=== PATIENT | female | born 2000 | race Caucasian/White ===

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

== ENCOUNTER 2018-03-10 22:56 | Emergency (ER) | payer MEDICAID, OTHER ==
[2018-03-11 01:39] LABS: Hematocrit 38 % (35-47); Hemoglobin 12.9 g/dl (12.0-16.0); Mean Corpuscular HGB Conc 34 g/dl (31-36); Mean Corpuscular Hemoglobin 30 pg (27-31); Mean Corpuscular Volume 88 fL (80-97); Mean Platelet Volume 8.4 fL (7.4-10.4); Platelet Count 165 10^3/ul (150-450); Red Blood Count 4.35 10^6/ul (4.00-5.40); Red Cell Distribution Width 13 % (10.5-15); White Blood Count 10.9 10^3/ul (3.5-10.8)
[2018-03-11 01:46] LABS: Urine Appearance Cloudy; Urine Blood Negative (Negative); Urine Color Yellow; Urine Ketones Negative (Negative); Urine Protein Negative (Negative); Urine Red Blood Cell Absent (Absent); Urine Specific Gravity 1.006 (1.010-1.030); Urine Urobilinogen Negative (Negative); Urine White Blood Cell Trace(0-5/hpf) (Absent)
[2018-03-11 01:53] LABS: EGFR Non-African American 131.3 (>60)
--- NOTE | 2018-03-11 02:22 | ED ---
Abdominal Pain/Female - HPI Summary HPI Summary: Patient is an otherwise healthy 17-year-old female presenting to the ED with diffuse abdominal pain worse to the mid upper quadrant worse approximately 30 minutes after eating and better with aloe rest. She is also endorsing some constipation over the past few days with last bowel movement yesterday morning which was a hard stool. She's never had anything like this before. She denies any abdominal surgeries. She denies any fevers, sweats, chills. She is endorsing nausea intermittently without vomiting. Denies urinary symptoms, vaginal pain or discharge. Denies chance of and currently on OCP. Pain is worse with solid foods and was better this afternoon with a smoothie. On arrival, she is asymptomatic but also stating she has not eaten anything except the smoothie. Endorses early satiety. She describes the pain as a dull ache, intermittent and x 4 days. Denies back pain. She states she feels otherwise well and has been having her normal ADL's without compromise. - History of Current Complaint Chief Complaint: EDAbdPain Stated Complaint: ABD PAIN/NAUSEA Time Seen by Provider: 03/11/18 00:46 Hx Obtained From: Patient ?: No Onset/Duration: Gradual Onset Timing: Constant Severity Initially: Mild Severity Currently: Mild Pain Intensity: 0 Pain Scale Used: 0-10 Numeric Location: Diffuse, Other - worse to the mid upper quadrant Radiates: No Character: Dull Aggravating Factor(s): Food Alleviating Factor(s): NPO Associated Signs and Symptoms: Positive: Constipation, Decreased Appetite, Nausea. Negative: Diaphoresis, Fever, Back Pain, Blood in Stool, Urinary Symptoms, Vaginal Bleeding, Vaginal Discharge, Vomiting, Diarrhea - Risk Factors Ectopic Risk Factor: Negative Ovarian Torsion Risk Factor: Reproductive Age Allergies/Adverse Reactions: Allergies Allergy/AdvReac Type Severity Reaction Status Date / Time No Known Allergies Allergy Verified 12/19/16 14:00 PMH/Surg Hx/FS Hx/Imm Hx Previously Healthy: Yes Respiratory History: Denies: Hx Chronic Obstructive Pulmonary Disease (COPD) Sensory History: Denies: Hx Eye Prosthesis, Hx Legally Blind Opthamlomology History: Denies: Hx Eye Prosthesis, Hx Legally Blind - Immunization History Hx Pertussis Vaccination: No Immunizations Up to Date: Yes Infectious Disease History: No Infectious Disease History: Denies: Traveled Outside the [place] in Last 30 Days - Family History Known Family History: Positive: Cardiac Disease - Social History Occupation: Unemployed Lives: With Family Alcohol Use: Rare Hx Substance Use: No Substance Use Type: Reports: None Hx Tobacco Use: No Smoking Status (MU): Never Smoked Tobacco Review of Systems - ROS Summary Review of Systems Summary: Constitutional: The patient denies fever, HENNESSY, sweats or chills. HEENT: Head: The patient denies headaches or dizziness. Eyes: The patient denies diplopia, blurry vision, eye pain, eye discharge, photophobia. Throat: The patient denies sore throats or hoarseness. Cardiovascular: The patient denies chest pain, palpitations, syncope, night cramps, or orthostasis. Respiratory: The patient denies cough, sputum production, hemoptysis, dyspnea, wheezing. Gastrointestinal: Endorses diffuse abodminal pain - worse to the upper middle quadrant without radiation. Endorses constipation. Denies diarrhea, vomiting. Endorses early satiety.The patient denies odynophagia, dysphagia, hematemesis , melenemesis. Genitourinary: Patient denies dysuria, hematuria, or pyuria. Patient denies back pain. Denies vaginal discharge, vaginal bleeding. Denies other urinary symptoms. Muscles: The patient denies myalgia, strain or weakness. Joints: The patient denies arthralgia and/or arthritis. Neurologic: The patient denies headache, loss of consciousness, or seizure. Negative: Fever, Chills, Fatigue, Skin Diaphoresis Negative: Palpitations, Chest Pain Negative: Shortness Of Breath, Cough Positive: Abdominal Pain - no complaints currently, Nausea. Negative: Vomiting , Diarrhea Genitourinary: Negative Positive: no symptoms reported, see HPI Negative: Arthralgia, Myalgia Skin: Negative All Other Systems Reviewed And Are Negative: Yes Physical Exam - Summary Physical Exam Summary: Appearance: WDW, comfortable, pleasant, alert Skin: Soft dry skin, no lesions. Nailbeds pink with no cyanosis or clubbing. No petechia noted. Eyes: JASMINA, EOMI, Conjunctiva pink with no redness or exudates. Mouth: Dentition without lesions. Moist mucosa Neck: Full range of motion. Palpable thyroid. Trachea at midline. No lymphadenopathy. Pulm: Chest symmetrical expansion. No deformities on posterior chest wall. Lungs clear to auscultation and percussion, without adventitious sounds. CV: No JVD. No deformities on anterior chest wall. Heart sounds. RRR. Normal S1 and single S2. No S3, S4, rubs, or murmurs. Carotids 2+ bilaterally without bruits. . exam not performed GI: Bowel sounds WNL in all 4 quadrants. No pain on deep palpation of all 4 quadrants. Negative navarro's, negative obturator. Negative psoas. No pain over Mcburney's point. Musculoskeletal: Flexion and extension of neck without limitations. ROM WNL in all extremities. No deformities noted. Pulses +2 bilaterally. Neuro: Motor strength is 5/5 in upper and lower extremities bilaterally. A&OX3 Psych: Logical, coherent Triage Information Reviewed: Yes Vital Signs On Initial Exam: Initial Vitals Temp Pulse Resp BP Pulse Ox 98.5 F 79 16 113/73 99 03/10/18 23:10 03/10/18 23:10 03/10/18 23:10 03/10/18 23:10 03/10/18 23:10 Vital Signs Reviewed: Yes Appearance: Positive: Well-Appearing, Well-Nourished Skin: Positive: Warm, Skin Color Reflects Adequate Perfusion Head/Face: Positive: Normal Head/Face Inspection Eyes: Positive: EOMI, JASMINA, Conjunctiva Clear Neck: Positive: Supple, No Lymphadenopathy Respiratory/Lung Sounds: Positive: Clear to Auscultation Cardiovascular: Positive: RRR, Pulses are Symmetrical in both Upper and Lower Extremities Abdomen Description: Positive: Nontender, No Organomegaly, Soft. Negative: CVA Tenderness (R), CVA Tenderness (L), Distended, Guarding, McBurney's Point Tenderness, Splenomegaly Bowel Sounds: Positive: Present Musculoskeletal: Positive: Normal, Strength/ROM Intact Psychiatric: Positive: Normal, Affect/Mood Appropriate AVPU Assessment: Alert Diagnostics - Vital Signs Vital Signs Temp Pulse Resp BP Pulse Ox 03/11/18 01:08 66 125/79 99 03/11/18 01:07 64 98 03/10/18 23:10 98.5 F 79 16 113/73 99 - Laboratory Lab Results: Lab Results 03/11/18 03/11/18 03/11/18 Range/Units 01:28 01:28 01:28 WBC 10.9 H (3.5-10.8) 10^3/ul RBC 4.35 (4.00-5.40) 10^6/ul Hgb 12.9 (12.0-16.0) g/dl Hct 38 (35-47) % MCV 88 (80-97) fL MCH 30 (27-31) pg MCHC 34 (31-36) g/dl RDW 13 (10.5-15) % Plt Count 165 (150-450) 10^3/ul MPV 8.4 (7.4-10.4) fL Sodium 135 (135-145) mmol/L Potassium 3.7 (3.5-5.0) mmol/L Chloride 104 (101-111) mmol/L Carbon Dioxide 25 (22-32) mmol/L Anion Gap 6 (2-11) mmol/L BUN 7 (6-24) mg/dL Creatinine 0.59 (0.51-0.95) mg/dL Est GFR ( Amer) 158.9 (>60) Est GFR (Non-Af Amer) 131.3 (>60) BUN/Creatinine Ratio 11.9 (8-20) Glucose 88 (70-100) mg/dL Calcium 9.4 (8.6-10.3) mg/dL Total Bilirubin 0.40 (0.2-1.0) mg/dL AST 90 H (13-39) U/L ALT 135 H (7-52) U/L Alkaline Phosphatase 146 H (34-104) U/L C-Reactive Protein 5.75 (<8.01) mg/L Total Protein 7.1 (6.4-8.9) g/dL Albumin 4.0 (3.2-5.2) g/dL Globulin 3.1 (2-4) g/dL Albumin/Globulin Ratio 1.3 (1-3) Urine Color Yellow Urine Appearance Cloudy Urine pH 7.0 (5-9) Ur Specific [place] 1.006 L (1.010-1.030) Urine Protein Negative (Negative) Urine Ketones Negative (Negative) Urine Blood Negative (Negative) Urine Nitrate Negative (Negative) Urine Bilirubin Negative (Negative) Urine Urobilinogen Negative (Negative) Ur Leukocyte Esterase 1+ A (Negative) Urine WBC (Auto) Trace(0-5/hpf) (Absent) Urine RBC (Auto) Absent (Absent) Ur Squamous Epith Cells Present A (Absent) Urine Bacteria Absent (Absent) Urine Glucose Negative (Negative) Result Diagrams: 03/11/18 01:28 03/11/18 01:28 Lab Statement: Any lab studies that have been ordered have been reviewed, and results considered in the medical decision making process. Abdominal Pain Fem Course/Dx - Course Course Of Treatment: During the course of treatment, the patient is evaluated for diffuse abdominal pain, worse to the upper mid quadrant. On physical examination, negative Navarro sign, negative psoas, negative obturator's, no tenderness at McBurney's point. There is no tenderness to the epigastric region at this time. There is no tenderness on deep palpation of all 4 quadrants. Patient appears well, vital signs are stable, alert and oriented and smiling. She states she is in no acute distress right now and endorses the pain at 0/10. She is also denying any nausea, vomiting again at this time ( this was present this morning). She states however over the past 4 days she has been having intermittent nausea with early satiety and diffuse abdominal pain which she rates a 3/10, worse after eating. She did have a smoothie this afternoon and states she did not have any pain or nausea after this intake. Denies any abdominal surgeries. Labs are obtained which shows a normal white count, however elevated liver enzymes with cause for concern for a gallbladder etiology. Bilirubin is not elevated and unlikely this pain d/t biliary obstruction, cholangitis, choledocholithiasis, or Mirizzi syndrome. Patient is stable, feeling well and is asymptomatic. For these reasons as well as no available US studies overnight (currently 1:45am), I have encouraged her to return tomorrow for an ultrasound of the gallbladder. However, if she remains asymptomatic and is able to tolerate PO well, she is able to follow-up with her PCP early next week. She understands return precautions of fever, nausea, vomiting, worsening abdominal pain and to return to the ED immediately if any of his symptoms persist. - Diagnoses Differential Diagnosis: Positive: Appendicitis, Constipation, Other - cholecystitis, cholelithiasis, gastric ulcer, peptic ulcer, constipation Provider Diagnoses: Diffuse abdominal pain, Nausea Discharge - Sign-Out/Discharge Documenting (check all that apply): Patient Departure - Discharge Plan Condition: Stable Disposition: HOME Referrals: Dariusz Beltre MD [Primary Care Provider] - Additional Instructions: As discussed, you may return to the ED tomorrow for a Gallbladder US. If you decide not to follow up tomorrow, please follow up with your PCP to obtain this early next week However, if you develop fevers, worsening abdominal pain or N/V - return to the ED! Low fat diet foods and slowly introduce small amounts of soups/smoothies. - Billing Disposition and Condition Condition: STABLE Disposition: Home
[2018-03-11 02:59] VITALS: BP 119/78
== END 2018-03-11 02:30 | disposition home or self-care (01) ==
LOC: ED 22:56
DX: R10.9 Unspecified abdominal pain (principal); R11.0 Nausea; K59.00 Constipation, unspecified
CPT/HCPCS: 36415; 74019; 80053; 81003; 81015; 85027; 86140; 87086; 99282

== ENCOUNTER 2018-03-17 11:03 | Emergency (ER) | payer OTHER ==
[2018-03-17] MEDS ORDERED: NS 0.9% 1000 ML* 1,000 ML IV ONE (12:15)
--- NOTE | 2018-03-17 12:47 | ED ---
Throat Pain/Nasal Congestion - HPI Summary HPI Summary: Patient is a 17-year-old female presenting to the ED with sore throat and concern for elevated LFTs. She was seen in the ED 1 week ago and was told to return again later for her elevated LFTs and RUQ pain. She states today she does not have RUQ pain but after she eats she is very "bloated." She has also developed throat pain over the past week with bilateral tonsillar exudates. Denies fever, however endorses sweats and chills 2 days. Denies IV drug use, taking any other medication other than ibuprofen and is otherwise healthy. - History of Current Complaint Chief Complaint: EDGeneral Time Seen by Provider: 03/17/18 12:02 Hx Obtained From: Patient Onset/Duration: Sudden Onset Severity: Moderate Associated Signs And Symptoms: Positive: Dysphagia - Epiglottits Risk Factors Epiglottis Risk Factors: Negative - Allergies/Home Medications Allergies/Adverse Reactions: Allergies Allergy/AdvReac Type Severity Reaction Status Date / Time No Known Allergies Allergy Verified 12/19/16 14:00 PMH/Surg Hx/FS Hx/Imm Hx Previously Healthy: Yes Respiratory History: Denies: Hx Chronic Obstructive Pulmonary Disease (COPD) Sensory History: Denies: Hx Eye Prosthesis, Hx Legally Blind Opthamlomology History: Denies: Hx Eye Prosthesis, Hx Legally Blind - Immunization History Hx Pertussis Vaccination: No Immunizations Up to Date: Yes Infectious Disease History: No Infectious Disease History: Denies: Traveled Outside the [place] in Last 30 Days - Family History Known Family History: Positive: Cardiac Disease - Social History Occupation: Unemployed Lives: Dormitory/Roommates Alcohol Use: Rare Hx Substance Use: No Substance Use Type: Reports: None Hx Tobacco Use: No Smoking Status (MU): Never Smoked Tobacco Review of Systems Positive: Chills, Fatigue, Skin Diaphoresis. Negative: Fever Negative: Photophobia, Blurred Vision Positive: Sore Throat. Negative: Dental Pain, Ear Ache Negative: Palpitations, Chest Pain Negative: Shortness Of Breath, Cough Positive: Other - feels "bloated". Negative: Abdominal Pain, Vomiting, Diarrhea , Nausea Genitourinary: Negative Positive: no symptoms reported, see HPI Neurological: Negative All Other Systems Reviewed And Are Negative: Yes Physical Exam Triage Information Reviewed: Yes Vital Signs On Initial Exam: Initial Vitals Temp Pulse Resp BP Pulse Ox 98.3 F 85 16 112/72 97 03/17/18 11:17 03/17/18 11:17 03/17/18 11:17 03/17/18 11:17 03/17/18 11:17 Vital Signs Reviewed: Yes Appearance: Positive: Well-Appearing, Well-Nourished Skin: Positive: Skin Color Reflects Adequate Perfusion Neck: Positive: Supple, No Lymphadenopathy Respiratory/Lung Sounds: Positive: Clear to Auscultation, Breath Sounds Present Cardiovascular: Positive: RRR, Pulses are Symmetrical in both Upper and Lower Extremities Abdomen Description: Positive: Nontender, Soft. Negative: CVA Tenderness (R), CVA Tenderness (L), Distended, Hepatomegaly, McBurney's Point Tenderness, Splenomegaly Bowel Sounds: Positive: Present Musculoskeletal: Positive: Strength/ROM Intact Neurological: Positive: Speech Normal Psychiatric: Positive: Normal, Affect/Mood Appropriate AVPU Assessment: Alert Diagnostics - Vital Signs Vital Signs Temp Pulse Resp BP Pulse Ox 03/17/18 11:17 98.3 F 85 16 112/72 97 - Laboratory Result Diagrams: 03/17/18 12:52 03/17/18 12:52 Lab Statement: Any lab studies that have been ordered have been reviewed, and results considered in the medical decision making process. EENT Course/Dx - Course Course Of Treatment: On physical examination, there is no tenderness diffusely throughout the abdomen including the right upper quadrant. Negative Hall's, no tenderness at McBurney's point, psoas and obturator are negative. Pharyngeal erythema with bilateral tonsillar exudates noted. Patient is afebrile and appears otherwise well. Due to her LFTs and RUQ pain from last week, gallbladder ultrasound obtained which is negative for any acute findings. LFTs slightly decreased, but remain elevated today. Strep is negative. She is discharged home with prednisone for her viral pharyngitis with pain and inflammation and is encouraged to follow-up with her PCP regarding her elevated LFTs. She is okay with this plan and discharge. - Diagnoses Provider Diagnoses: Elevated LFTs, Pharyngitis Discharge - Sign-Out/Discharge Documenting (check all that apply): Patient Departure - Discharge Plan Condition: Stable Disposition: HOME Prescriptions: predniSONE TAB* [Deltasone TAB*] 50 mg PO DAILY #5 tab MDD 1 Patient Education Materials: Pharyngitis (ED) Referrals: Dariusz Beltre MD [Primary Care Provider] - Additional Instructions: Please follow up with PCP regarding your elevated liver enzymes Prednisone once daily x 5 days Over the counter chloraseptic tabs Do not take tylenol Take ibpurofen for any discomfort - Billing Disposition and Condition Condition: STABLE Disposition: Home
[2018-03-17 13:02] LABS: ABS Basophils 0 10^3/ul (0-0.2); ABS Eosinophils 0 10^3/ul (0-0.6); ABS Lymphocytes 3.3 10^3/ul (1.0-4.8); ABS Monocytes 0.7 10^3/ul (0-0.8); ABS Neutrophils 3.6 10^3/ul (1.5-7.7); ABS Nucleated RBC 0 10^3/ul; Eosinophil % 0.2 %; Hematocrit 36 % (35-47); Lymphocyte % 43.3 %; Mean Corpuscular HGB Conc 34 g/dl (31-36); Mean Corpuscular Hemoglobin 29 pg (27-31); Mean Corpuscular Volume 87 fL (80-97); Mean Platelet Volume 7.5 fL (7.4-10.4); Nucleated Red Blood Cells % 0.1; Platelet Count 232 10^3/ul (150-450); Red Blood Count 4.09 10^6/ul (4.00-5.40); Red Cell Distribution Width 13 % (10.5-15); White Blood Count 7.7 10^3/ul (3.5-10.8)
[2018-03-17 13:31] LABS: EGFR Non-African American 121.7 (>60)
[2018-03-17 14:13] VITALS: BP 107/70
== END 2018-03-17 14:13 | disposition home or self-care (01) ==
LOC: ED 11:03
DX: J02.9 Acute pharyngitis, unspecified (principal); R79.89 Other specified abnormal findings of blood chemistry; R14.0 Abdominal distension (gaseous)
CPT/HCPCS: 36415; 76705; 80053; 82150; 83690; 84702; 85025; 86140; 87651; 96360; 99282

== ENCOUNTER 2018-04-13 15:19 | Emergency (ER) | payer OTHER ==
[2018-04-13] MEDS ORDERED: Ibuprofen TAB* 400 MG PO ONE (16:06)
[2018-04-13 16:33] LABS: Hematocrit 38 % (35-47); Hemoglobin 13.1 g/dl (12.0-16.0); Mean Corpuscular HGB Conc 34 g/dl (31-36); Mean Corpuscular Hemoglobin 30 pg (27-31); Mean Corpuscular Volume 87 fL (80-97); Platelet Count 238 10^3/ul (150-450); Red Blood Count 4.39 10^6/ul (4.00-5.40); Red Cell Distribution Width 13 % (10.5-15); White Blood Count 6.4 10^3/ul (3.5-10.8)
[2018-04-13 16:51] LABS: Albumin 4.4 g/dL (3.2-5.2); Albumin/Globulin Ratio 1.8 (1-3); BUN/Creatinine Ratio 14.3 (8-20); Calcium 9.2 mg/dL (8.6-10.3); EGFR African American 130.4 (>60); EGFR Non-African American 107.8 (>60); Globulin 2.4 g/dL (2-4); Potassium 3.5 mmol/L (3.5-5.0); Total Bilirubin 0.3 mg/dL (0.2-1.0); Total Protein 6.8 g/dL (6.4-8.9)
[2018-04-13 16:59] LABS: Urine Appearance Cloudy; Urine Bacteria 3+ (Absent); Urine Bilirubin Negative (Negative); Urine Blood 2+ (Negative); Urine Color Yellow; Urine Glucose Negative (Negative); Urine Ketones Negative (Negative); Urine Nitrite Positive (Negative); Urine Protein Negative (Negative); Urine Red Blood Cell 3+(>10/hpf) (Absent); Urine Specific Gravity 1.013 (1.010-1.030); Urine Squamous Epithelial Cell Present (Absent); Urine Urobilinogen Negative (Negative); Urine White Blood Cell 3+(>20/hpf) (Absent)
[2018-04-13] MEDS ORDERED: Sulfamethox/Trimethoprim DS 800/160* TAB PO ONE (17:24)
--- NOTE | 2018-04-13 17:31 | ED ---
Abdominal Pain/Female - HPI Summary HPI Summary: The patient is a 17 y/o F presenting to [facility] with a chief complaint of gradual onset right flank pain starting yesterday while she was on plane back from [place]. Two days ago, she had increased frequent foul-smelling urine, and it was cloudy. She then developed the flank pain and back pain that is worse on the left than the right. She denies dysuria and hematuria. The pain is currently rated 6/10 in severity. About two weeks ago, she had salmonella, with increased diarrhea that was treated with an antidiarrheal. Also about a month ago she had increased liver enzymes. She denies hx of UTI and kidney or bladder infections. No smoking or EtOH. - History of Current Complaint Chief Complaint: EDFlankPain Stated Complaint: BACK AND ABD PAIN Time Seen by Provider: 04/13/18 15:45 Hx Obtained From: Patient Onset/Duration: Sudden Onset, Lasting Days - two, Still Present Timing: Days Severity Initially: Mild Severity Currently: Moderate Pain Intensity: 6 Pain Scale Used: 0-10 Numeric Location: Flank - right Radiates: No Aggravating Factor(s): Nothing Alleviating Factor(s): Nothing Associated Signs and Symptoms: Positive: Back Pain - worse on left than right, Other: - POSITIVE: increased urinary frequency with foul-smelling urine; NEGATIVE: dysuria, hematuria Allergies/Adverse Reactions: Allergies Allergy/AdvReac Type Severity Reaction Status Date / Time No Known Allergies Allergy Verified 04/13/18 15:27 PMH/Surg Hx/FS Hx/Imm Hx Endocrine/Hematology History: Denies: Hx Diabetes Respiratory History: Denies: Hx Chronic Obstructive Pulmonary Disease (COPD) History: Denies: Hx Kidney Infection Sensory History: Denies: Hx Eye Prosthesis, Hx Legally Blind Opthamlomology History: Denies: Hx Eye Prosthesis, Hx Legally Blind - Surgical History Surgery Procedure, Year, and Place: none Infectious Disease History: No Infectious Disease History: Reports: Traveled Outside the [place] in Last 30 Days - Family History Known Family History: Positive: Cardiac Disease - Social History Occupation: Student Lives: Dormitory/Roommates Alcohol Use: Rare Hx Substance Use: No Substance Use Type: Reports: None Hx Tobacco Use: No Smoking Status (MU): Never Smoked Tobacco Review of Systems Negative: Fever, Chills Negative: Erythema Negative: Sore Throat Negative: Chest Pain Negative: Shortness Of Breath, Cough Negative: Vomiting, Nausea Positive: frequency - increased, flank pain - right flank, other - foul- smelling urine. Negative: dysuria, hematuria Positive: Other - worse on left back but also on right. Negative: Myalgia, Edema Negative: Rash Neurological: Other - NEGATIVE: dizziness All Other Systems Reviewed And Are Negative: Yes Physical Exam - Summary Physical Exam Summary: Constitutional: Well-developed, Well-nourished, Alert. (-) Distressed Skin: Warm, Dry HENT: Normocephalic; Atraumatic Eyes: Conjunctiva normal Neck: Musculoskeletal ROM normal neck. (-) JVD, (-) Stridor, (-) Tracheal deviation Cardio: Rhythm regular, rate normal, Heart sounds normal; Intact distal pulses; The pedal pulses are 2+ and symmetric. Radial pulses are 2+ and symmetric. (-) Murmur Pulmonary/Chest wall: Effort normal. (-) Respiratory distress, (-) Wheezes, (-) Rales Abd: Soft, Mild right flank tenderness, (-) epigastric tenderness, (-) Distension, (-) Guarding, (-) Rebound Musculoskeletal: (-) Edema, Mild TVA tenderness bilaterally Lymph: (-) Cervical adenopathy Neuro: Alert, Oriented x3 Psych: Mood and affect Normal Triage Information Reviewed: Yes Vital Signs On Initial Exam: Initial Vitals Temp Pulse Resp BP Pulse Ox 98.1 F 75 14 126/79 100 04/13/18 15:22 04/13/18 15:22 04/13/18 15:22 04/13/18 15:22 04/13/18 15:22 Vital Signs Reviewed: Yes Diagnostics - Vital Signs Vital Signs Temp Pulse Resp BP Pulse Ox 04/13/18 15:22 98.1 F 75 14 126/79 100 - Laboratory Lab Results: Lab Results 04/13/18 04/13/18 04/13/18 Range/Units 16:26 16:26 16:26 WBC 6.4 (3.5-10.8) 10^3/ul RBC 4.39 (4.00-5.40) 10^6/ul Hgb 13.1 (12.0-16.0) g/dl Hct 38 (35-47) % MCV 87 (80-97) fL MCH 30 (27-31) pg MCHC 34 (31-36) g/dl RDW 13 (10.5-15) % Plt Count 238 (150-450) 10^3/ul MPV 8.0 (7.4-10.4) fL Sodium 138 (135-145) mmol/L Potassium 3.5 (3.5-5.0) mmol/L Chloride 106 (101-111) mmol/L Carbon Dioxide 27 (22-32) mmol/L Anion Gap 5 (2-11) mmol/L BUN 10 (6-24) mg/dL Creatinine 0.70 (0.51-0.95) mg/dL Est GFR ( Amer) 130.4 (>60) Est GFR (Non-Af Amer) 107.8 (>60) BUN/Creatinine Ratio 14.3 (8-20) Glucose 103 H (70-100) mg/dL Lactic Acid 1.0 (0.5-2.0) mmol/L Calcium 9.2 (8.6-10.3) mg/dL Total Bilirubin 0.30 (0.2-1.0) mg/dL AST 18 (13-39) U/L ALT 17 (7-52) U/L Alkaline Phosphatase 61 (34-104) U/L Total Protein 6.8 (6.4-8.9) g/dL Albumin 4.4 (3.2-5.2) g/dL Globulin 2.4 (2-4) g/dL Albumin/Globulin Ratio 1.8 (1-3) Urine Color Urine Appearance Urine pH (5-9) Ur Specific [place] (1.010-1.030) Urine Protein (Negative) Urine Ketones (Negative) Urine Blood (Negative) Urine Nitrate (Negative) Urine Bilirubin (Negative) Urine Urobilinogen (Negative) Ur Leukocyte Esterase (Negative) Urine WBC (Auto) (Absent) Urine RBC (Auto) (Absent) Ur Squamous Epith Cells (Absent) Urine Bacteria (Absent) Urine Glucose (Negative) 04/13/18 Range/Units 16:39 WBC (3.5-10.8) 10^3/ul RBC (4.00-5.40) 10^6/ul Hgb (12.0-16.0) g/dl Hct (35-47) % MCV (80-97) fL MCH (27-31) pg MCHC (31-36) g/dl RDW (10.5-15) % Plt Count (150-450) 10^3/ul MPV (7.4-10.4) fL Sodium (135-145) mmol/L Potassium (3.5-5.0) mmol/L Chloride (101-111) mmol/L Carbon Dioxide (22-32) mmol/L Anion Gap (2-11) mmol/L BUN (6-24) mg/dL Creatinine (0.51-0.95) mg/dL Est GFR ( Amer) (>60) Est GFR (Non-Af Amer) (>60) BUN/Creatinine Ratio (8-20) Glucose (70-100) mg/dL Lactic Acid (0.5-2.0) mmol/L Calcium (8.6-10.3) mg/dL Total Bilirubin (0.2-1.0) mg/dL AST (13-39) U/L ALT (7-52) U/L Alkaline Phosphatase (34-104) U/L Total Protein (6.4-8.9) g/dL Albumin (3.2-5.2) g/dL Globulin (2-4) g/dL Albumin/Globulin Ratio (1-3) Urine Color Yellow Urine Appearance Cloudy Urine pH 6.0 (5-9) Ur Specific [place] 1.013 (1.010-1.030) Urine Protein Negative (Negative) Urine Ketones Negative (Negative) Urine Blood 2+ A (Negative) Urine Nitrate Positive A (Negative) Urine Bilirubin Negative (Negative) Urine Urobilinogen Negative (Negative) Ur Leukocyte Esterase 1+ A (Negative) Urine WBC (Auto) 3+(>20/hpf) A (Absent) Urine RBC (Auto) 3+(>10/hpf) A (Absent) Ur Squamous Epith Cells Present A (Absent) Urine Bacteria 3+ A (Absent) Urine Glucose Negative (Negative) Result Diagrams: 04/13/18 16:26 04/13/18 16:26 Lab Statement: Any lab studies that have been ordered have been reviewed, and results considered in the medical decision making process. Re-Evaluation - Re-Evaluation First Eval Re-Evaluation Time: 17:30 Change: Unchanged Comment: I spoke with the patient concering discharge home and follow up at [facility]. Abdominal Pain Fem Course/Dx - Course Course Of Treatment: The patient is a 17 y/o F presenting to [facility] with a chief complaint of gradual onset right flank pain starting yesterday. Two days ago, she had increased frequent foul-smelling urine, and it was cloudy. She then developed the flank pain and back pain that is worse on the left than the right. She denies dysuria and hematuria. About two weeks ago, she had salmonella , with increased diarrhea that was treated with an antidiarrheal. Also about a month ago she had increased liver enzymes. She denies hx of UTI and kidney or bladder infections. Upon physical exam, the patient exhibits mild TVA tenderness bilaterally and mild right flank tenderness. In the ED course, the patient was given Ibuprofen and Bactrim. Bloodwork is unremarkable. UA reveals blood, nitrate, leukocytes, WBCs, RBCs, and bacteria. With these results, the patient is diagnosed with pyelonephritis. She will be discharged home with prescription for Bactrim, education instructions, and follow up with [facility] in 1-2 days. She agrees with this plan and understands the need for return to the ED if symptoms worsen. - Diagnoses Provider Diagnoses: Pyelonephritis Discharge - Sign-Out/Discharge Documenting (check all that apply): Patient Departure - Patient will be discharged home. - Discharge Plan Condition: Stable Disposition: HOME Prescriptions: Sulfamethox/Trimethoprim DS* [Bactrim DS 800/160 TAB*] 1 tab PO BID #14 tab Patient Education Materials: Kidney Infection (ED) Print Language: AZERI Referrals: Mihir Adam MD [Primary Care Provider] - [facility] [Provider Group] - 2 Days Additional Instructions: Please take medication as prescribed. Follow up with [facility] in 1-2 days. RETURN TO THE EMERGENCY DEPARTMENT FOR ANY NEW OR WORSENING SYMPTOMS. - Billing Disposition and Condition Condition: STABLE Disposition: Home - Attestation Statements Document Initiated by Irma: Yes Documenting Scribe: Ewa Shields Provider For Whom Irma is Documenting (Include Credential): Dr. Rajinder Ryan MD Scribe Attestation: Ewa Ford scribed for Dr. Rajinder Ryan MD on 04/13/18 at 2053. Scribe Documentation Reviewed: Yes Provider Attestation: The documentation as recorded by the Ewa wills accurately reflects the service I personally performed and the decisions made by me, Dr. Rajinder Ryan MD Status of Lalitibthao Document: Viewed
[2018-04-13 18:16] VITALS: BP 115/67
== END 2018-04-13 18:16 | disposition home or self-care (01) ==
LOC: ED 15:19
DX: N12 Tubulo-interstitial nephritis, not specified as acute or chronic (principal); M54.9 Dorsalgia, unspecified; R10.84 Generalized abdominal pain
CPT/HCPCS: 36415; 80053; 81003; 81015; 83605; 85027; 87077; 87086; 87186; 99282; A9270-GY